=== PATIENT | male | born 1995 | race Caucasian/White ===

== ENCOUNTER → 2016-07-26 | Outpatient (CLI) | payer BC ==
[~2016-07-26] MED LIST: CYCL-265 PO; IBUP-788 PO; PENI500T PO; PRED20TA PO; TRM50T PO
[2016-07-26 13:38] VITALS: BP 131/76
--- NOTE | 2016-07-26 13:38 | Urgent Care T Sheet Gen (E) ---
Intake General Temperature (Fahrenheit): 99.0 Pulse: 93 Blood Pressure Systolic: 131 Blood Pressure Diastolic: 76 Respirations: 18 SPO2: 98 Description of Symptoms Patient presents with sore throat, BROUSSARD and fever. Started on Tuesday but has worsened with time. States his throat is very sore and his R tonsil is enlarged. Been taking Tylenol and NyQuil. History of Present Illness Allergies: Coded Allergies: No Known Drug Allergies (Unverified , 08/25/13) Home Meds Active Scripts Penicillin V Potassium 500 Mg [id number] Mg PO QID #40 TAB Ref 0 Prov:MODE SMART DO 04/18/15 Tramadol HCl 50 Mg Tablet1-2 Tab PO Q6H PRN PAIN #20 TAB Ref 0 Prov:MODE SMART DO 04/18/15 Ibuprofen (Motrin)800 Mg [id number] Mg PO q 8 hrs PRN #20 Prov:ASIAEVONNE MCCLENDON Leilani DO 08/25/13 Respiratory Constitutional Symptoms: Fever Malaise EENTM: Throat pain Respiratory: No symptoms reported Cardiovascular: No symptoms reported Gastrointestinal/Abdominal: No symptoms reported All Other Systems Reviewed Remaining Systems: All other systems reviewed with negative findings Past Htspxfm-Awkwpk-Xivzwm Hx Surgeries/Hospitalizations Hospitalization/Surgery Hx: ANXIETY, DEPRESSION, Respiratory Respiratory History: None Cardiovascular Cardiovascular History: None Reproductive System Sexually Transmitted Diseases: No Gastrointestinal GI/Endocrine History: None Diabetes Diabetes: No HEENT Impaired Vision: Glasses Hearing Impaired: None Psychosocial Behavior Disorders: None Physical Exam Physical Exam General Appearance: WD/WN No apparent distress Eyes, Ears, Nose, Throat Ex: TMs normal Pharyngeal erythema Tonsillar exudate (R worse than L side) Neck Exam: Supple Lymphadenopathy (anterior cervical) Respiratory Exam: Lungs clear Normal breath sounds Cardiovascular Exam: Regular rate, rhythm Progress/Orders Lab Results Labs Results: Rapid Strep (negative) Departure Urgent Care Impression Impression: Primary Impression: Viral pharyngitis Departure Disposition: HOME OR SELF-CARE Condition: Stable Additional Instructions: Rapid strep was negative. I have sent for culture and will call once results are known. I have started him on prednisone x 3 days for inflammation. Rest. Fluids. No NSAIDs while on steroid. May continue with Tylenol as needed for pain/fever Return as needed Patient understands DC instructions. All questions were answered. Scripts Prednisone 20 Mg [id number] Mg PO DAILY #6 TAB Prov:ALLISON PENG 07/26/16 End of report . ALLISON PENG Jul 26, 2016 13:38
--- NOTE | 2016-07-28 14:49 | Urgent Care Follow Up Note (E) ---
Urgent Care Follow Up Note Called patient to discuss culture results. Throat culture was negative. Patient has finished his Prednisone. States he is doing better but isn't 100% Offered to prescribe Visc Lidocaine however he declined. Would like to give it more time. He is to call if he changes his mind. Return as needed. All questions were answered. Scripts Prednisone 20 Mg [id number] Mg PO DAILY #6 TAB Prov:ALLISON PENG 07/26/16 ALLISON PENG Jul 28, 2016 14:49
== END ==
LOC: MHUC 13:13
PROVIDERS: ATTEND Physician Assistant
DX: J02.8 Acute pharyngitis due to other specified organisms (principal)
CPT/HCPCS: 87880; 99213

== ENCOUNTER 2016-10-30 16:37 | Emergency (ER) | payer BC ==
[~2016-10-30] VITALS: Ht 170.2 cm; Wt 86.0 kg
[2016-10-30 16:41] VITALS: BP 126/65
--- OUTSIDE RECORDS SUMMARY | 2016-10-30 16:41 | XMS REPORT | Continuity of Care Document ---
Author Author [facility] Address Unknown Phone Unavailable Allergies Active Description Code Type Severity Reaction Onset Reported/Identified Relationship to Patient Clinical Status Yes No Known Drug Allergies [id number] Drug Allergy Unknown N/ A 08/25/2013 Medications Problems Date Dx Coded Attending Type Code Diagnosis Diagnosed By 08/25/2013 EVONNE BETANCOURT DO Ot 300.00 08/25/2013 EVONNE BETANCOURT DO Ot 307.81 08/25/2013 EVONNE BETANCOURT DO Ot 784.0 04/18/2015 MODE SMART DO Ot K02.9 04/18/2015 MODE SMART DO Ot K05.20 07/28/2016 ALLISON PEÑA Ot J02.8 ACUTE PHARYNGITIS DUE TO OTHER SPECIFIED Procedures Results Encounters ACCT No. Visit Date/Time Discharge Status Pt. Type Provider Facility Loc./Unit Complaint [id number] 04/18/2015 06:14:00 2014 06:57:00 DIS Emergency MODE SMART DO [facility] ED [id number] 08/25/2013 01:29:00 2013 03:10:00 DIS Emergency [facility] ED [id number] 07/26/2016 13:13:00 ACT Outpatient ALLISON PEÑA [facility]
--- OUTSIDE RECORDS SUMMARY | 2016-10-30 16:45 | XMS REPORT | Continuity of Care Document ---
Author Author [facility] Address Unknown Phone Unavailable Allergies Active Description Code Type Severity Reaction Onset Reported/Identified Relationship to Patient Clinical Status Yes No Known Drug Allergies [id number] Drug Allergy Unknown N/ A 08/25/2013 Medications [...] Status Pt. Type Provider Facility Loc./Unit Complaint [id number] 04/18/2015 06:14:00 2014 06:57:00 DIS Emergency MODE SMART DO [facility] ED [id number] 08/25/2013 01:29:00 2013 03:10:00 DIS Emergency [facility] ED [id number] 07/26/2016 13:13:00 ACT Outpatient ALLISON PEÑA [facility]
[2016-10-30] MEDS: ALBUTEROL 0.083% NEB SOLUTION 2.5 MG/3 ML VIAL INH STA (17:31)
[2016-10-30] MEDS: predniSONE 20 MG (DELTASONE) TABLET PO ONE (17:48)
[2016-10-30] MEDS: diphenhydrAMINE 25 MG (BENADRYL) TABLET PO ONE (17:48)
[2016-10-30] MEDS: FAMOTIDINE 20 MG (PEPCID) TABLET PO STA (17:49)
[2016-10-30] MEDS ORDERED: PRED20TA PO (17:58)
[2016-10-30] MEDS ORDERED: ALBU6.7H IH (17:58)
== END 2016-10-30 18:11 | disposition home or self-care (01) ==
LOC: ED 16:41
DX: T36.0X5A Adverse effect of penicillins, initial encounter (principal); L27.0 Generalized skin eruption due to drugs and medicaments taken internally
CPT/HCPCS: 94640; 99282; J7613; 99283